=== PATIENT | female | born 1990 | race African-American/Black ===

== ENCOUNTER 2019-06-25 10:28 | Inpatient (IN) | payer BC ==
[~2019-06-25] VITALS: Ht 172.7 cm; Wt 86.2 kg
[2019-06-25 12:01] LABS: BASOPHILS % 0.2 % (0.0-2.0); EOSINOPHILS % 0.7 % (0.0-5.0); HEMATOCRIT. 33.7 % (36.0-48.0); HEMOGLOBIN. 11.5 g/dL (12.0-16.0); LYMPHOCYTES % 15.7 % (20.0-50.0); MEAN CORPUSCULAR HEMOGLOBIN 30.6 pg (28.0-32.0); MEAN CORPUSCULAR VOLUME 89.2 fL (81.0-99.0); MEAN PLATELET VOLUME 9.2 fl (7.4-10.4); MONOCYTES % 8.7 % (2.0-8.0); NEUTROPHILS % 74.7 % (40.0-76.0); PLATELET 205 x1000/uL (130-400); RED BLOOD CELL COUNT 3.78 mill/uL (4.2-5.4); RED CELL DISTRIBUTION WIDTH 16.2 % (11.6-14.6)
[2019-06-25 12:02] LABS: CLARITY URINE CLEAR (CLEAR); COLOR URINE YELLOW (YELLOW); KETONES URINE NEGATIVE (NEGATIVE); LEUKOCYTE ESTERASE URINE TRACE (NEGATIVE); NITRITE URINE NEGATIVE (NEGATIVE); OCCULT BLOOD URINE NEGATIVE (NEGATIVE); PH URINE 6.5 (4.5-8.0); PROTEIN URINE NEGATIVE (NEGATIVE); SPECIFIC GRAVITY URINE 1.012 (1.005-1.030); UROBILINOGEN URINE 0.2 E.U./dL (0.2-1.0)
[2019-06-25 12:09] LABS: INR 0.9; PARTIAL THROMBOPLASTIN TIME 27.8 sec (23.4-31.0); PROTHROMBIN TIME 9.5 sec (9.6-11.0)
[2019-06-25] MEDS ORDERED: DEXT 5%/LR + PITOCIN 20UNITS/L 1,000 ML IV SCH (12:16)
[2019-06-25 12:24] LABS: *AMPHETAMINES SCREEN URINE NEGATIVE (NEGATIVE); *BARBITURATES SCREEN URINE NEGATIVE (NEGATIVE); *BENZODIAZEPINES SCREEN URINE NEGATIVE (NEGATIVE); *COCAINE SCREEN URINE NEGATIVE (NEGATIVE); METHADONE URINE SCREEN NEGATIVE (NEGATIVE); OPIATES URINE SCREEN NEGATIVE (NEGATIVE); PHENCYCLIDINE URINE SCREEN NEGATIVE (NEGATIVE)
[2019-06-25 12:25] LABS: CANNABINOID URINE SCREEN NEGATIVE (NEGATIVE)
[2019-06-25] MEDS ORDERED: NALOXONE HCL 0.4 MG/ML 1ML VIAL IM PRN (12:30)
[2019-06-25] MEDS ORDERED: LIDOCAINE HCL 1% 20ML VIAL (Pyxis) INJ INFIL SCH (12:30)
[2019-06-25] MEDS ORDERED: METHYLERGONOVINE MALEATE 0.2 MG/ML IM PRN (12:30)
[2019-06-25] MEDS ORDERED: MISOPROSTOL 200MCG TABLET VG SCH (12:30)
[2019-06-25] MEDS ORDERED: CARBOPROST TROMETHAMINE 250 MCG/ML AMPUL IM PRN (12:30)
[2019-06-25] MEDS: LACTATED RINGERS 1,000 ML IV SCH ×2 (12:47→17:52)
[2019-06-25] MEDS ORDERED: PENICILLIN G POTASSIUM 5 MMU in DEXT 5% WATER 100 ML IV SCH (13:00)
[2019-06-25 13:07] LABS: HEPATITIS B SURFACE ANTIGEN NEGATIVE
[2019-06-25] MEDS: BUTORPHANOL TARTRATE 2 MG/ML VIAL IV PRN ×3 (16:56→22:19)
[2019-06-25] MEDS: PENICILLIN G POTASSIUM 2.5 MMU in DEXTROSE 5% WATER 50 ML IV SCH (21:04)
[2019-06-26] MEDS: LACTATED RINGERS 1,000 ML IV SCH ×2 (00:55→04:44)
[2019-06-26] MEDS: PENICILLIN G POTASSIUM 2.5 MMU in DEXTROSE 5% WATER 50 ML IV SCH ×2 (00:55→04:44)
[2019-06-26] MEDS ORDERED: ROPIVACAINE HCL/PF EPIDURAL 200 ML EPI SCH (01:30)
[2019-06-26] MEDS ORDERED: DEXT 5%/LR + PITOCIN 20UNITS/L 1,000 ML IV SCH (11:11)
[2019-06-26] MEDS ORDERED: BISACODYL 10MG SUPP PR PRN (11:15)
[2019-06-26] MEDS ORDERED: GLYCERIN/WITCH HAZEL LEAF MEDICATED PAD TOP PRN (11:15)
[2019-06-26] MEDS ORDERED: BENZOCAINE/LANOLIN/ALOE VERA SPRAY TOP PRN (11:15)
[2019-06-26] MEDS ORDERED: HEMORRHOIDAL SUPP PR PRN (11:15)
[2019-06-26] MEDS ORDERED: DIPHENHYDRAMINE 25MG CAPSULE PO PRN (11:15)
[2019-06-26] MEDS: ACETAMINOPHEN WITH CODEINE 300/30MG TABLET PO PRN ×5 (12:00→21:58)
[2019-06-26] MEDS ORDERED: MAGNESIUM/ALUMINUM HYDROXIDE/SIMETHICONE 30ML UDC PO SCH (12:36)
[2019-06-26 13:00] VITALS: BP 127/69
[2019-06-26 14:00] VITALS: BP 137/83
[2019-06-26 18:00] VITALS: BP 126/71
[2019-06-26] MEDS ORDERED: TETANUS, DIPHTHERIA, PERTUSSIS VAC/PF 0.5ML (>7YR OLD) IM ONE (19:00)
[2019-06-26 20:00] VITALS: BP 127/72
[2019-06-26] MEDS ORDERED: DOCUSATE SODIUM 100MG CAPSULE PO SCH (21:00)
[2019-06-26] MEDS: IBUPROFEN 400MG TABLET PO PRN (23:36)
[2019-06-27] MEDS: ACETAMINOPHEN WITH CODEINE 300/30MG TABLET PO PRN (00:59)
[2019-06-27 04:00] VITALS: BP 128/80
[2019-06-27] MEDS: IBUPROFEN 400MG TABLET PO PRN (05:51)
[2019-06-27 06:17] LABS: BASOPHILS % 0.4 % (0.0-2.0); EOSINOPHILS % 0.9 % (0.0-5.0); HEMATOCRIT. 28.5 % (36.0-48.0); HEMOGLOBIN. 9.6 g/dL (12.0-16.0); LYMPHOCYTES % 12.3 % (20.0-50.0); MEAN CORPUSCULAR HEMOGLOBIN 30.5 pg (28.0-32.0); MEAN CORPUSCULAR VOLUME 90.6 fL (81.0-99.0); MEAN PLATELET VOLUME 9.1 fl (7.4-10.4); NEUTROPHILS % 78.4 % (40.0-76.0); PLATELET 162 x1000/uL (130-400); RED BLOOD CELL COUNT 3.14 mill/uL (4.2-5.4); RED CELL DISTRIBUTION WIDTH 16.6 % (11.6-14.6)
[2019-06-27] MEDS ORDERED: FERROUS SULFATE 325MG TABLET PO SCH (07:30)
[2019-06-27 08:00] VITALS: BP 105/61
[2019-06-27] MEDS ORDERED: PRENATAL VIT/FE FUMARATE/FA TABLET PO SCH (09:00)
[2019-06-27] MEDS: SIMETHICONE 80MG TABLET CHEW PO SCH ×2 (09:14→13:06)
== END 2019-06-27 15:15 | disposition home or self-care (01) | DRG 807 ==
LOC: OBSVTOIN 10:28 → 8 EST LDRP 10:28 → 8EST 06-26 12:36
PROVIDERS: ADMIT Obstetrics & Gynecology; ATTEND Obstetrics & Gynecology
PROC: 10E0XZZ Delivery of Products of Conception, External Approach (ICD-10-PCS; principal; 2019-06-26)
DX: O77.0 Labor and delivery complicated by meconium in amniotic fluid (principal); Z37.0 Single live birth; O99.824 Streptococcus B carrier state complicating childbirth; Z3A.41 41 weeks gestation of pregnancy; O90.81 Anemia of the puerperium; D64.9 Anemia, unspecified
CPT/HCPCS: 36415; 76805; 76818; 80305; 81003; 85025; 86592; 86703; 86762; 86850; 86900; 87340; 90715; G0378; J0595; J2310; J2540; J2590; J2795; J7060